=== PATIENT | female | born 1975 | race Caucasian/White ===

== ENCOUNTER → 2021-04-19 | Outpatient (CLI) | payer OTHER | LOC: RAD 17:40 | DX: M25.562 Pain in left knee (principal) | CPT/HCPCS: 73562 ==

== ENCOUNTER → 2021-05-29 | Outpatient (CLI) | payer OTHER | LOC: MRI 12:49 | DX: S83.242A Other tear of medial meniscus, current injury, left knee, initial encounter (principal) | CPT/HCPCS: 73721 ==

== ENCOUNTER → 2021-10-27 | Outpatient (CLI) | payer OTHER | LOC: EROP 11:19 → LBRF 11:19 | DX: H66.42 Suppurative otitis media, unspecified, left ear (principal) | CPT/HCPCS: 96372 ==